=== PATIENT | female | born 2000 | race Hispanic/Latino ===

== ENCOUNTER 2023-04-27 22:41 | Emergency (ER) | payer OTHER ==
[~2023-04-27] VITALS: Ht 154.9 cm; Wt 54.4 kg
[2023-04-27 23:59] VITALS: BP 111/68; PULSE 67; RESP 18; O2SAT 98
[2023-04-28] MEDS ORDERED: ORPHENADRINE CITRATE 30 MG/ML ML IM ONE (01:00)
[2023-04-28] MEDS ORDERED: KETOROLAC 30MG VIAL (30MG/ML) IM ONE (01:00)
[2023-04-28] MEDS ORDERED: CYCL10TA16 PO (02:47)
== END 2023-04-28 03:05 | disposition home or self-care (01) ==
LOC: EDH 22:41
DX: M54.2 Cervicalgia (principal); Z98.890 Other specified postprocedural states
CPT/HCPCS: 99284; 81025; 96372 ×2; J1885; J2360